=== PATIENT | male | born 1945 | race Caucasian/White ===

== ENCOUNTER 2024-02-15 15:49 | Emergency (ER) | payer OTHER ==
[2024-02-15 16:17] VITALS: BMI 25.0
[2024-02-15] MEDS ORDERED: ACETAMINOPHEN INJECTION 100 ML ONE (16:25)
[2024-02-15] MEDS ORDERED: ONDANSETRON 4 MG/2 ML VIAL ONE (16:25)
[2024-02-15 16:34] LABS: BASO % 0.4 % (0-2.0); EOS % 0.7 % (0-4.5); HEMATOCRIT 36.9 % (35.4-49); HEMOGLOBIN 12.2 GM/dL (11.7-16.9); LYMPH % 13.3 % (8-40); MCH 31.7 pg (25.7-33.7); MCHC 32.9 g/dl (32.0-35.9); MEAN CELL VOLUME 96.2 fl (80-96); MEAN PLT VOLUME 7.6 fl (7.5-11.1); MONO % 6.3 % (3.8-10.2); NEUT % 79.3 % (42.8-82.8); PLATELET COUNT 174 10^3/uL (134-434); RBC 3.84 M/mm3 (4.00-5.60); RDW 13.8 % (11.9-15.9); WHITE BLOOD COUNT 10.3 K/mm3 (4.0-10.0)
[2024-02-15 16:39] LABS: INR 2.59 (0.83-1.09)
[2024-02-15 16:41] LABS: ACTIVATED PTT 40.6 SECONDS (25.2-36.5)
[2024-02-15] MEDS: ONDANSETRON 4 MG/2 ML VIAL IVPUSH ONE (16:43)
[2024-02-15] MEDS: ACETAMINOPHEN 1000 MG/100 ML BAG IVPB ONE (16:43)
[2024-02-15 16:50] LABS: POTASSIUM 3.8 mmol/L (3.5-5.1)
[2024-02-15 16:52] LABS: CALCIUM 8.8 mg/dL (8.5-10.1)
[2024-02-15 16:53] LABS: ALBUMIN 3.5 g/dl (3.4-5.0); BLOOD UREA NITROGEN 9.9 mg/dL (7-18)
[2024-02-15 16:57] LABS: BILIRUBIN,TOTAL 0.7 mg/dL (0.2-1); TOT PROT 6.8 g/dl (6.4-8.2)
[2024-02-15] MEDS: SODIUM CHLORIDE 1,000 ML IV STA (17:00)
[2024-02-15 17:12] LABS: LACTIC ACID 3.9 mmol/L (0.4-2.0)
[2024-02-15] MEDS ORDERED: morphine SULFATE 4 MG/ML VIAL ONE (17:38)
[2024-02-15] MEDS: morphine CARPU-JECT 4 MG/1 ML DISP.SYRIN IVPUSH ONE (17:43)
[2024-02-15] MEDS ORDERED: HUM PROTHROMBIN CPLX(PCC)4FACT 1,000 UNIT/40 ML VIAL IV ONE (20:56)
[2024-02-15] MEDS: HUM PROTHROMBIN CPLX(PCC)4FACT 1,000 UNIT/40 ML VIAL IV ONE (21:00)
[2024-02-15] MEDS ORDERED: PHYTONADIONE 10 MG/1 ML AMP ONE (21:17)
[2024-02-15] MEDS: HUM PROTHROMBIN CPLX IVPB ONE (21:29)
[2024-02-15] MEDS: [UNRECOGNIZED DRUG - OTHER] IVPB ONE (21:29)
[2024-02-15] MEDS: LACTATED RINGERS SOLUTION 1000 ML INFUS.BAG IV ONE (21:29)
[2024-02-15] MEDS: PHYTONADIONE 10 MG/1 ML AMP IVPB ONE (21:29)
[2024-02-15] MEDS: morphine SULFATE 4 MG/ML VIAL IVPUSH ONE (21:42)
[2024-02-15] MEDS ORDERED: MORPHINE SULFATE 2 MG/ML SYRINGE ONE (22:10)
[2024-02-15] MEDS: morphine CARPU-JECT 2 MG/1 ML DISP.SYRIN IVPUSH ONE (22:10)
[2024-02-15 23:02] VITALS: BP 103/74; PULSE 69; RESP 22
[2024-02-15 23:06] VITALS: TEMP 97.2
== END 2024-02-15 22:55 | disposition short-term general hospital (02) ==
LOC: JER 15:49
PROC: 3E033NZ Introduction of Analgesics, Hypnotics, Sedatives into Peripheral Vein, Percutaneous Approach (ICD-10-PCS; principal; 2024-02-15)
PROC: 3E033NZ Introduction of Analgesics, Hypnotics, Sedatives into Peripheral Vein, Percutaneous Approach (ICD-10-PCS; 2024-02-15)
PROC: 3E033NZ Introduction of Analgesics, Hypnotics, Sedatives into Peripheral Vein, Percutaneous Approach (ICD-10-PCS; 2024-02-15)
PROC: 3E033GC Introduction of Other Therapeutic Substance into Peripheral Vein, Percutaneous Approach (ICD-10-PCS; 2024-02-15)
PROC: 3E0337Z Introduction of Electrolytic and Water Balance Substance into Peripheral Vein, Percutaneous Approach (ICD-10-PCS; 2024-02-15)
DX: I71.33 Infrarenal abdominal aortic aneurysm, ruptured (principal); I71.21 Aneurysm of the ascending aorta, without rupture; I71.23 Aneurysm of the descending thoracic aorta, without rupture; R10.32 Left lower quadrant pain; R11.0 Nausea
CPT/HCPCS: 36415; 74174-TC; 80053; 83605; 84484; 85025; 85610; 85730; 86900; 86922; 93005; 93010; 99291; 99292; J0131; J7168; P9017; P9038; P9058; Q9967